=== PATIENT | male | born 1995 | race Caucasian/White ===

== ENCOUNTER 2017-07-21 17:38 | Inpatient (IN) | payer BC, OTHER ==
[~2017-07-21] VITALS: Ht 170.2 cm; Wt 62.8 kg
[~2017-07-21 17:38] MED LIST: Insulin pump SUBCUT; Nicotine TD
--- NOTE | 2017-07-21 17:45 | ED.ADGEN ---
Past History Past Medical History: Diabetes, Other Past Surgical History: No Surgical History Alcohol Use: Occasionally Drug Use: Marijuana Adult General Chief Complaint Chief Complaint ".. I am sick.. vomiting.. hurt... short of breath... I ve been out of my insulin...."it been about 3 days..." " I am puking so much.. nothing coming up...".." I am puking so much I am short of breath..." HPI HPI Patient is a 22 year old male who presents with above hx and complaints. Pt. states he has bee dry heaving all day. Pt. states did not refill his insulin pump because it cost too much. Pt. States he has no back up plan if he does not maintain his pump. Pt. follows with Dr. West and Dr. Mun[facility] for endocrine. Pt. denies ill contacts, bad food, immunosuppression or travel. Pt. does smoke TOB and MJ. Review of Systems Review of Systems Constitutional: Denies fever or chills [] Eyes: Denies change in visual acuity, redness, or eye pain [] HENT: Denies nasal congestion or sore throat [] Respiratory: Denies cough or shortness of breath [] Cardiovascular: No additional information not addressed in HPI [] GI: Complaints of epigastric abdominal pain, nausea, vomiting. Denies bloody stools or diarrhea [] : Denies dysuria or hematuria [] Musculoskeletal: Denies back pain or joint pain [] Integument: Denies rash or skin lesions [] Neurologic: Denies headache, focal weakness or sensory changes [] Endocrine: Denies polyuria or polydipsia [] Family History Family History Diabetes Current Medications Current Medications Current Medications Medications (Trade) Dose Ordered Sig/Kamlesh Start Time Stop Time Status Last Admin Dose Admin Aspirin (Children'S Aspirin) 324 mg 1X ONCE 07/21/17 18:30 07/21/17 18:31 DC 07/21/17 18:18 324 MG Insulin Human Regular 150 unit/ Sodium Chloride 151.5 ml @ 0 mls/hr 1X ONCE 07/21/17 20:15 07/21/17 20:20 DC Ondansetron HCl (Zofran) 4 mg PRN QID PRN 07/21/17 20:15 Sodium Chloride 1,000 ml @ 1,000 mls/hr 1X ONCE 07/21/17 19:15 07/21/17 20:14 DC 07/21/17 19:15 1,000 MLS/HR Allergies Allergies Allergies Coded Allergies Type Severity Reaction Last Updated Verified I S O L A T I O N *CONTACT* Allergy Unknown 07/19/16 Yes NKMA Allergy Unknown 07/19/16 Yes Physical Exam Physical Exam Constitutional: in acute distress, non-toxic appearance. [] HENT: Normocephalic, atraumatic, bilateral external ears normal, oropharynx dry , no oral exudates, nose normal. [] Eyes: PERRLA, EOMI, conjunctiva normal, no discharge. [] Neck: Normal range of motion, no tenderness, supple, no stridor. [] Cardiovascular: Tachycardia Heart rate regular rhythm, no murmur [] Lungs & Thorax: Bilateral breath sounds equal with scattered wheezes on auscultation [] Abdomen: Bowel sounds normal, soft, mild generalized epigastric and abdomen tenderness, no masses, no pulsatile masses. [] Skin: Warm, dry, no erythema, no rash. Tattoos Back: No tenderness, no CVA tenderness. [] Extremities: No tenderness, no cyanosis, no clubbing, ROM intact, no edema. No cording noted. No lesions on feet Neurologic: Alert and oriented X 3, normal motor function, normal sensory function, no focal deficits noted. Distal vibratory 128 intact Psychologic: Affect flat, mood depressed Current Patient Data Vital Signs Vital Signs Date Time Temp Pulse Resp B/P (MAP) Pulse Ox O2 Delivery O2 Flow Rate FiO2 07/21/17 18:46 98.0 85 18 129/59 (82) 100 Room Air Lab Results Laboratory Tests Test 07/21/17 17:44 07/21/17 17:58 07/21/17 18:07 07/21/17 18:40 Glucose (Fingerstick) 593 mg/dL (70-99) *H White Blood Count 16.9 x10^3/uL (4.0-11.0) H Red Blood Count 5.22 x10^6/uL (4.30-5.70) Hemoglobin 16.0 g/dL (13.0-17.5) Hematocrit 48.8 % (39.0-53.0) Mean Corpuscular Volume 94 fL (79-100) Mean Corpuscular Hemoglobin 31 pg (25-35) Mean Corpuscular Hemoglobin Concent 33 g/dL (31-37) Red Cell Distribution Width 13.5 % (11.5-14.5) Platelet Count 319 x10^3/uL (140-400) Neutrophils (%) (Auto) 87 % (31-73) H Lymphocytes (%) (Auto) 8 % (24-48) L Monocytes (%) (Auto) 5 % (0-9) Eosinophils (%) (Auto) 0 % (0-3) Basophils (%) (Auto) 0 % (0-3) Neutrophils # (Auto) 14.7 x10^3uL (1.8-7.7) H Lymphocytes # (Auto) 1.3 x10^3/uL (1.0-4.8) Monocytes # (Auto) 0.9 x10^3/uL (0.0-1.1) Eosinophils # (Auto) 0.0 x10^3/uL (0.0-0.7) Basophils # (Auto) 0.0 x10^3/uL (0.0-0.2) Segmented Neutrophils % 88 % (35-66) H Lymphocytes % 10 % (24-48) L Monocytes % 2 % (0-10) Platelet Estimate Adequate (ADEQUATE) Prothrombin Time 10.9 SEC (9.4-11.4) Prothrombin Time INR 1.1 (0.9-1.1) PTT 24 SEC (23-33) Sodium Level 130 mmol/L (136-145) L Potassium Level 4.3 mmol/L (3.5-5.1) Chloride Level 90 mmol/L (98-107) L Carbon Dioxide Level 13 mmol/L (21-32) L Anion Gap 27 (6-14) H Blood Urea Nitrogen 24 mg/dL (8-26) Creatinine 1.3 mg/dL (0.7-1.3) Estimated GFR (Cockcroft-Gault) 70.4 BUN/Creatinine Ratio 18 (6-20) Glucose Level 597 mg/dL (70-99) *H Calcium Level 9.5 mg/dL (8.5-10.1) Magnesium Level 2.1 mg/dL (1.8-2.4) Total Bilirubin 0.8 mg/dL (0.2-1.0) Direct Bilirubin 0.2 mg/dL (0.0-0.2) Aspartate Amino Transferase (AST) 26 U/L (15-37) Alanine Aminotransferase (ALT) 30 U/L (16-63) Alkaline Phosphatase 157 U/L (46-116) H Troponin I Quantitative < 0.017 ng/mL (0-0.055) Total Protein 8.5 g/dL (6.4-8.2) H Albumin 4.4 g/dL (3.4-5.0) Albumin/Globulin Ratio 1.1 (1.0-1.7) Amylase Level 28 U/L (25-115) Lipase 93 U/L (73-393) Urine Collection Type Void Urine Color Yellow Urine Clarity Clear Urine pH 5.5 Urine Specific [place] 1.015 Urine Protein Neg (NEG-TRACE) Urine Glucose (UA) 500 mg/dL (NEG) Urine Ketones (Stick) >=160 mg/dL (NEG) Urine Blood Neg (NEG) Urine Nitrite Neg (NEG) Urine Bilirubin Neg (NEG) Urine Urobilinogen Dipstick 0.2 mg/dL (0.2 mg/dL) Urine Leukocyte Esterase Neg (NEG) Urine RBC 0 /HPF (0-2) Urine WBC 0 /HPF (0-4) Urine Squamous Epithelial Cells None /LPF Urine Bacteria Few /HPF (0-FEW) Urine Opiates Screen Neg (NEG) Urine Methadone Screen Neg (NEG) Urine Barbiturates Neg (NEG) Urine Phencyclidine Screen Neg (NEG) Urine Amphetamine/Methamphetamine Neg (NEG) Urine Benzodiazepines Screen Neg (NEG) Urine Cocaine Screen Neg (NEG) Urine Cannabinoids Screen Pos (NEG) Urine Ethyl Alcohol Neg (NEG) Blood pH 7.19 (7.35-7.46) *L Blood Gas PCO2 29 mmHg (35-46) L Blood Gas PO2 104 mmHg (80-100) H Blood Gas HCO3 11 mmol/L (21-28) L Arterial Bld O2 Saturation (Calc) 97 % (92-99) FiO2 21 % Test 07/21/17 19:15 Glucose (Fingerstick) 536 mg/dL (70-99) *H EKG EKG My interpretation of EKG shows a sinus 99, nonspecific contour abnormalities anterior septal area. No findings acute STEMI with contralateral changes at this time.[] Radiology/Procedures Radiology/Procedures My interpretation of CXR shows no free air under diaph. , no acute cardiopul. changes[] Course & Med Decision Making Course & Med Decision Making Pertinent Labs and Imaging studies reviewed. (See chart for details) Discussed presentation, testing and tx plan Dr. Doe, will admit for hydration , and insulin. [] Final Impression Final Impression 1. DM- Hyperglycemia/DKA[] 2. Elevated Alk PHos 3. Hyponatremia 4. Dehydration 5. Tob. & Marijuana use 6. Non-compliance. 7. Leukocytosis Problems: Dragon Disclaimer Dragon Disclaimer This electronic medical record was generated, in whole or in part, using a voice recognition dictation system. FELICIANO SCHREIBER MD Jul 21, 2017 17:45
[2017-07-21] MEDS ORDERED: IV NORMAL SALINE 1,000ML 1,000 ML IV SCH ×3 (17:50→21:00)
--- NOTE | 2017-07-21 18:29 | EKG ---
[address] [address] Test Date: 2017-07-21 Test Time: 18:15:58 Pat Name: ALYANA FRANKS Department: Room: Gender: M Care Asst: KULDIP : 1995 Requested By: FELICIANO SCHREIBER Order Number: [id number] Reading MD: Michael Villegas Measurements Intervals [place] Rate: 99 P: 80 LA: 142 QRS: 89 QRSD: 86 T: 54 QT: 340 QTc: 442 Interpretive Statements SINUS RHYTHM RIGHT AXIS DEVIATION, LIKELY BENIGN WITH VERTICAL HEART IN A YOUNGER PATIENT Electronically Signed On 07-24-2017 9:55:08 CDT by Michael Villegas
[2017-07-21] MEDS ORDERED: ONDANSETRON PF 4 MG/2 ML VIAL. IV ONE (18:30)
[2017-07-21] MEDS ORDERED: ASPIRIN 81 MG TAB.CHEW PO ONE (18:30)
[2017-07-21 18:33] LABS: BARBITURATES NEG (NEG); BENZODIAZEPINES NEG (NEG); CANNABINOIDS POS (NEG); COCAINE NEG (NEG); METHADONE NEG (NEG); OPIATES NEG (NEG); PHENCYCLIDINE NEG (NEG)
[2017-07-21 18:41] LABS: ALBUMIN 4.4 g/dL (3.4-5.0); ALBUMIN/GLOBULIN RATIO 1.1 (1.0-1.7); CALCIUM 9.5 mg/dL (8.5-10.1); CREATININE 1.3 mg/dL (0.7-1.3); DIRECT BILIRUBIN 0.2 mg/dL (0.0-0.2); GFR 70.4; MAGNESIUM 2.1 mg/dL (1.8-2.4); POTASSIUM 4.3 mmol/L (3.5-5.1); TOTAL BILIRUBIN 0.8 mg/dL (0.2-1.0); TOTAL PROTEIN 8.5 g/dL (6.4-8.2)
[2017-07-21 18:48] LABS: BASO % 0 % (0-3); EOS % 0 % (0-3); HEMATOCRIT 48.8 % (39.0-53.0); LYMPH # 1.3 x10^3/uL (1.0-4.8); LYMPH % 8 % (24-48); MEAN CORPUSCULAR HEMOGLOBIN 31 pg (25-35); MEAN CORPUSCULAR HGB CONC 33 g/dL (31-37); MEAN CORPUSCULAR VOLUME 94 fL (79-100); MONO # 0.9 x10^3/uL (0.0-1.1); MONO % 5 % (0-9); NEUT # 14.7 x10^3uL (1.8-7.7); NEUT % 87 % (31-73); PLATELET COUNT 319 x10^3/uL (140-400); RED BLOOD COUNT 5.22 x10^6/uL (4.30-5.70); RED CELL DISTRIBUTION WIDTH 13.5 % (11.5-14.5); WHITE BLOOD COUNT 16.9 x10^3/uL (4.0-11.0)
[2017-07-21 18:51] LABS: AMPHETAMINE/METHAMPHETAMINE NEG (NEG)
[2017-07-21 18:52] LABS: BGAS PH 7.19 (7.35-7.46)
[2017-07-21 18:54] LABS: CLARITY,URINE CLEAR; COLOR,URINE YELLOW
[2017-07-21 18:55] LABS: BACTERIA,URINE FEW /HPF (0-FEW); BILIRUBIN,URINE NEG (NEG); GLUCOSE,URINE 500 mg/dL (NEG); NITRITE,URINE NEG (NEG); RBC,URINE 0 /HPF (0-2); UROBILINOGEN,URINE 0.2 mg/dL (0.2 mg/dL); WBC,URINE 0 /HPF (0-4)
[2017-07-21] MEDS ORDERED: IV NORMAL SALINE 1,000ML 1,000 ML IV ONE (19:15)
[2017-07-21 19:41] LABS: % LYMPHS 10 % (24-48); % MONOS 2 % (0-10); % SEGS 88 % (35-66); PLT ESTIMATE ADEQUATE (ADEQUATE)
[2017-07-21] MEDS ORDERED: INSULIN REGULAR 150 UNIT in 0.9 % SODIUM CHLORIDE 150ML 150 ML IV ONE (20:15)
[2017-07-21] MEDS ORDERED: ONDANSETRON PF 4 MG/2 ML VIAL. IV PRN (20:15)
[2017-07-21] MEDS ORDERED: INSULIN REGULAR 100 UNIT/ML 10ML VIAL. IV ONE (20:30)
[2017-07-21] MEDS ORDERED: INSULIN REGULAR 150 UNIT in 0.9 % SODIUM CHLORIDE 150ML 150 ML IV PRN (20:45)
[2017-07-21 21:10] VITALS: BP 120/58
[2017-07-21 22:11] VITALS: BP 111/51
[2017-07-21] MEDS: IV DEXTROSE 5 %-0.45 % NACL 1,000 ML IV SCH (22:29)
[2017-07-21 23:11] VITALS: BP 111/44
[2017-07-22] VITALS (13 sets, daily range): BP systolic 97–126; BP diastolic 44–68
[2017-07-22 00:30] LABS: CREATININE 1.2 mg/dL (0.7-1.3); GFR 77.2; POTASSIUM 4.5 mmol/L (3.5-5.1)
[2017-07-22 04:33] LABS: BASO # 0.1 x10^3/uL (0.0-0.2); BASO % 0 % (0-3); EOS % 0 % (0-3); HEMATOCRIT 40.9 % (39.0-53.0); HEMOGLOBIN 13.8 g/dL (13.0-17.5); LYMPH # 1.8 x10^3/uL (1.0-4.8); LYMPH % 13 % (24-48); MEAN CORPUSCULAR HEMOGLOBIN 31 pg (25-35); MEAN CORPUSCULAR HGB CONC 34 g/dL (31-37); MEAN CORPUSCULAR VOLUME 90 fL (79-100); MONO # 1.1 x10^3/uL (0.0-1.1); MONO % 8 % (0-9); NEUT # 10.9 x10^3uL (1.8-7.7); NEUT % 78 % (31-73); PLATELET COUNT 269 x10^3/uL (140-400); RED BLOOD COUNT 4.54 x10^6/uL (4.30-5.70); RED CELL DISTRIBUTION WIDTH 13.3 % (11.5-14.5); WHITE BLOOD COUNT 13.9 x10^3/uL (4.0-11.0)
[2017-07-22 04:35] LABS: CALCIUM 8.1 mg/dL (8.5-10.1); GFR 95.3; POTASSIUM 4.3 mmol/L (3.5-5.1)
[2017-07-22] MEDS: IV DEXTROSE 5 %-0.45 % NACL 1,000 ML IV SCH (04:55)
[2017-07-22 08:10] LABS: CALCIUM 8.3 mg/dL (8.5-10.1); CREATININE 1.1 mg/dL (0.7-1.3); GFR 85.3; POTASSIUM 3.9 mmol/L (3.5-5.1)
[2017-07-22] MEDS ORDERED: DEXTROSE 50% 25 GM / 50ML DISP.SYRIN. IV PRN (08:45)
[2017-07-22] MEDS ORDERED: NICOTINE 14MG PATCH. TD SCH (09:00)
--- NOTE | 2017-07-22 09:14 | RAD ---
Acute abdomen series with chest, 3 views, 07/21/2017: History: Nausea, vomiting, abdominal pain The abdominal gas pattern is unremarkable. No free air seen in the abdomen. There is no evidence of organomegaly. Lower pelvic calcifications are probably phleboliths. The heart size is normal. The lungs are clear. IMPRESSION: No acute abdominal abnormality is detected.
[2017-07-22] MEDS: INSULIN ASPART 300 UNITS/3 ML INSULN.PEN SQ SCH ×3 (10:00→13:09)
[2017-07-22] MEDS ORDERED: INSULIN ASPART 300 UNITS/3 ML INSULN.PEN SQ ONE (10:15)
--- NOTE | 2017-07-22 17:32 | SSS ---
ADMIT DATE: 07/22/2017 DISCHARGE DIAGNOSES: 1. Diabetic ketoacidosis. 2. Insulin pump. 3. Tobacco use disorder. 4. Daily cannabis use. 5. Dehydration, resolved. 6. Leukocytosis ____ secondary to inflammation. HOSPITAL COURSE: This is a 22-year-old male, who was admitted through the Emergency Room because he ran out of his insulin that he uses in his pump. He has been out of insulin for 3 days and had been throwing up. He came with a blood sugar into the 500s, pH of 7.19. He was hydrated and was placed on insulin drip and his DKA resolved rather nicely with exception of one blood sugar 502 at 10:00 this morning. OBJECTIVE: VITAL SIGNS: Blood pressure 116/50, pulse 61, respirations 18, pulse ox is 98% on room air. HEENT: The patient's color is good. His tongue is moist. NECK: Supple. LUNGS: Clear. CARDIOVASCULAR: Regular rhythm and rate. He was tachycardic earlier on, but now good pulse. ABDOMEN: Soft, nontender. EXTREMITIES: Without edema. DISPOSITION: To home. Counseled, I gave him information on [facility] as well as direct primary care in [place] where he could possibly get some insulin samples. I discouraged him from tobacco use as well as daily cannabis use. Encouraged him to get a job and start an exercise program. He left in good condition. MADI RAYMOND DO DR: AYAH/raquel JOB#: [id number] / [id number]
== END 2017-07-22 13:37 | disposition home or self-care (01) | DRG 639 ==
LOC: ER 17:38 → ICU 20:17
PROVIDERS: ADMIT Family Medicine; ATTEND Family Medicine
DX: E13.10 Other specified diabetes mellitus with ketoacidosis without coma (principal); E86.0 Dehydration; D72.829 Elevated white blood cell count, unspecified; F12.90 Cannabis use, unspecified, uncomplicated; F17.200 Nicotine dependence, unspecified, uncomplicated; Z96.41 Presence of insulin pump (external) (internal); Z79.4 Long term (current) use of insulin; Z83.3 Family history of diabetes mellitus
CPT/HCPCS: 36415; 36600; 74022; 80048; 80053; 80076; 80307; 81001; 82150; 82803; 82947; 83690; 83735; 84484; 85007; 85025; 85610; 85730; 87641; 93005; 96361; 96374; 96375; J1815; J2405; 99285-25; G0479; J7030

== ENCOUNTER 2019-02-24 09:31 | Emergency (ER) | payer BC, OTHER ==
[~2019-02-24] VITALS: Ht 170.2 cm; Wt 62.6 kg
[2019-02-24 09:31] VITALS: BP 131/65
--- NOTE | 2019-02-24 10:06 | RAD ---
Right ankle 3 views. HISTORY: Right ankle pain, twisted playing basketball 3 views were taken of the right ankle. There is mild soft tissue swelling. There is a sesamoid at the tip of the lateral malleolus versus a small avulsion fracture. MRI could be of benefit. No other fracture or osseous abnormality is noted. IMPRESSION: 1. Sesamoid versus small fracture at the tip of the lateral malleolus. Electronically signed by: Abdullahi Roberts MD (02/24/2019 10:03 AM) [facility]
--- NOTE | 2019-02-24 10:46 | PHYS DOC ---
Past History Past Medical History: Diabetes, Other Past Surgical History: No Surgical History Alcohol Use: Occasionally Drug Use: Marijuana Adult General Chief Complaint Chief Complaint: ANKLE PROBLEM HPI HPI 23-year-old male presents with right ankle pain. The patient was playing basketball last night. When he jumped and came down on his right foot he landed on the outer aspect of it. He felt a crunching sensation and ankle medially. The patient was able to walk afterwards, and assumed this was a sprain. He woke up today and the pain was much worse. He has lateral malleolus swelling. He is now concerned for fracture. Patient denies any other injuries or complaints. Review of Systems Review of Systems Constitutional: Denies fever or chills [] Eyes: Denies change in visual acuity, redness, or eye pain [] HENT: Denies nasal congestion or sore throat [] Respiratory: Denies cough or shortness of breath [] Cardiovascular: No additional information not addressed in HPI [] GI: Denies abdominal pain, nausea, vomiting, bloody stools or diarrhea [] : Denies dysuria or hematuria [] Musculoskeletal: Right ankle pain[] Integument: Denies rash or skin lesions [] Neurologic: Denies headache, focal weakness or sensory changes [] Endocrine: Denies polyuria or polydipsia [] All other systems were reviewed and found to be within normal limits, except as documented in this note. Allergies Allergies Allergies Coded Allergies Type Severity Reaction Last Updated Verified I S O L A T I O N *CONTACT* Allergy Unknown 07/19/16 Yes NKMA Allergy Unknown 07/19/16 Yes Physical Exam Physical Exam Constitutional: Well developed, well nourished, no acute distress, non-toxic appearance. [] HENT: Normocephalic, atraumatic, bilateral external ears normal, oropharynx moist, no oral exudates, nose normal. [] Eyes: PERRLA, EOMI, conjunctiva normal, no discharge. [] Neck: Normal range of motion, no tenderness, supple, no stridor. [] Cardiovascular:Heart rate regular rhythm, no murmur [] Lungs & Thorax: Bilateral breath sounds clear to auscultation [] Abdomen: Bowel sounds normal, soft, no tenderness, no masses, no pulsatile masses. [] Skin: Warm, dry, no erythema, no rash. [] Back: No tenderness, no CVA tenderness. [] Extremities: Vomiting and tenderness of the right lateral malleolus, no obvious deformity, no ecchymosis.[] Neurologic: Alert and oriented X 3, normal motor function, normal sensory function, no focal deficits noted. [] Psychologic: Affect normal, judgement normal, mood normal. [] Current Patient Data Vital Signs Vital Signs Date Time Temp Pulse Resp B/P (MAP) Pulse Ox O2 Delivery O2 Flow Rate FiO2 02/24/19 09:31 98.2 101 20 98 Room Air EKG EKG [] Radiology/Procedures Radiology/Procedures [] Impressions: Right ankle 3 views. HISTORY: Right ankle pain, twisted playing basketball 3 views were taken of the right ankle. There is mild soft tissue swelling. There is a sesamoid at the tip of the lateral malleolus versus a small avulsion fracture. MRI could be of benefit. No other fracture or osseous abnormality is noted. IMPRESSION: 1. Sesamoid versus small fracture at the tip of the lateral malleolus. Electronically signed by: Darien Monroe MD (02/24/2019 10:03 AM) [facility] DICTATED AND SIGNED BY: DARIEN MONROE MD DATE: 02/24/19 1003 CC: CON ERVIN DO; RAMON SORIA MD ~ Course & Med Decision Making Course & Med Decision Making Pertinent Labs and Imaging studies reviewed. (See chart for details) The patient's x-ray is significant for a small fracture of the distal fibula. We 'll place him in a posterior splint and refer him to orthopedics. He is stable for discharge at this time. [] Dragon Disclaimer Dragon Disclaimer This electronic medical record was generated, in whole or in part, using a voice recognition dictation system. Departure Departure: Impression: Primary Impression: Closed fracture of right distal fibula Disposition: 01 HOME, SELF-CARE Condition: STABLE Referrals: RAMON SORIA MD (PCP) Patient Instructions: Ankle Fracture, [id number] Additional Instructions: Please call [place] with the pediatric group at the following number: to make an appointment with the orthopedic doctor. Problem Qualifiers Primary Impression: Closed fracture of right distal fibula Encounter type: initial encounter Fracture morphology: unspecified fracture morphology Qualified Codes: S82.831A - Other fracture of upper and lower end of right fibula, initial encounter for closed fracture CON ERVIN DO Feb 24, 2019 10:46
== END 2019-02-24 11:00 | disposition home or self-care (01) ==
LOC: ER 09:31
DX: S82.831A Other fracture of upper and lower end of right fibula, initial encounter for closed fracture (principal); E11.9 Type 2 diabetes mellitus without complications; Z91.041 Radiographic dye allergy status; W18.39XA Other fall on same level, initial encounter; Y93.67 Activity, basketball; Y92.89 Other specified places as the place of occurrence of the external cause; Y99.8 Other external cause status
CPT/HCPCS: 73610; 99284